=== PATIENT | female | born 1950 | race Caucasian/White ===

== ENCOUNTER 2023-12-12 12:17 | Inpatient (IN) | payer MEDICARE, BC ==
[~2023-12-12] VITALS: Ht 162.6 cm; Wt 75.0 kg
[2023-12-12 13:06] LABS: BASOPHILS # (AUTO) 0.1 X10'3 (0-0.2); EOSINOPHILS # (AUTO) 0.4 X10'3 (0-0.9); EOSINOPHILS % (AUTO) 2.7 % (0-6); HEMATOCRIT 33.6 % (35.0-45.0); HEMOGLOBIN 10.9 g/dl (12.0-16.0); LYMPHOCYTES # (AUTO) 2.9 X10'3 (1.1-4.8); LYMPHOCYTES % (AUTO) 20.4 % (21-51); MEAN CORPUSCULAR HEMOGLOBIN 30.7 PG (27.0-31.0); MEAN CORPUSCULAR HGB CONC 32.4 g/dL (33.0-36.5); MEAN CORPUSCULAR VOLUME 94.8 FL (78-98); MEAN PLATELET VOLUME 7.2 FL (7.4-10.4); MONOCYTES # (AUTO) 0.8 X10'3 (0-0.9); MONOCYTES % (AUTO) 5.6 % (2-12); NEUTROPHILS # (AUTO) 10.1 X10'3 (1.8-7.7); NEUTROPHILS % (AUTO) 70.3 % (42-75); PLATELET COUNT 316 X10'3 (140-440); RED BLOOD COUNT 3.55 X10'6 (4.20-5.60); RED CELL DISTRIBUTION WIDTH 16.9 % (11.5-14.5); WHITE BLOOD COUNT 14.3 X10'3 (4.5-11.0)
[2023-12-12 13:10] LABS: ALBUMIN 3.3 G/DL (3.4-5.0); ANION GAP 10 (8-16); BLOOD UREA NITROGEN 47 MG/DL (7-18); CALCIUM 10.2 MG/DL (8.5-10.1); CHLORIDE 96 MMOL/L (99-107); CREATININE 7.77 MG/DL (0.40-0.90); GLUCOSE 168 MG/DL (70-104); MAGNESIUM 1.7 MG/DL (1.5-2.4); POTASSIUM 4.8 MMOL/L (3.5-5.1); SODIUM 136 MMOL/L (135-145); TOTAL CARBON DIOXIDE 29.8 MMOL/L (24-32); eCRCL 6 ML/MIN; eGFR 5 ML/MIN
[2023-12-12] MEDS: normal saline 1000ML IV soln IVB ONE (14:02)
[2023-12-12 14:05] LABS: C-REACTIVE PROTEIN 2.67 MG/DL (0.0-0.5)
[2023-12-12] MEDS: normal saline 1000ml 1,000 ML IV ONE (16:37)
[2023-12-12] MEDS ORDERED: potassium Cl 40MEQ/1/2NS 520ml 520 ML IV PRN (16:40)
[2023-12-12] MEDS ORDERED: magnesium sulf-water 4G/100mL 100 ML IV PRN (16:40)
[2023-12-12] MEDS ORDERED: acetaminophen 325mg tablet PO PRN (16:40)
[2023-12-12] MEDS ORDERED: magnesium Cl slow-release 64mg tablet PO PRN (16:40)
[2023-12-12] MEDS ORDERED: potassium Cl 20 mEq SR tablet PO PRN ×2 (16:40)
[2023-12-12] MEDS ORDERED: magnesium sulf-water 2g/50mL 50 ML IV PRN (16:40)
[2023-12-12] MEDS ORDERED: gentamicin inj 150 MG in normal saline 100ml IV soln 100 ML IV SCH (16:55)
[2023-12-12] MEDS ORDERED: VANCOMYCIN 1 GM IV ONE (17:05)
[2023-12-12] MEDS ORDERED: [UNRECOGNIZED DRUG - OTHER] IV ONE (17:05)
[2023-12-12] MEDS ORDERED: PEG IV ONE (17:05)
[2023-12-12] MEDS: normal saline 1000ml 1,000 ML IV SCH (17:16)
[2023-12-12] MEDS: vancomycin/NS 1 GM ADD-VANTAGE 250 ML X 1 DOSE IV ONE (17:16)
[2023-12-12] MEDS: oxyCODONE IR 5mg (immed. release) tablet PO PRN (19:13)
[2023-12-12] MEDS: gentamicin inj 150 MG in normal saline 100ml IV soln 100 ML IV ONE (19:29)
[2023-12-12] MEDS: diatrozoate meglu/diatrozoate sod (37% iodine) 120ML oral solution PO ONE (19:45)
[2023-12-12] MEDS: heparin, porcine 5000 units/ml vial SQ SCH (20:29)
[2023-12-12 22:00] VITALS: BP 92/45; PULSE 81; RESP 18; TEMP 97.7; O2SAT 95
[2023-12-13] VITALS (13 sets, daily range): BP systolic 90–115; BP diastolic 37–60; PULSE 68–96; RESP 15–21; TEMP 97.2–98.4; O2SAT 95–100
[2023-12-13] MEDS ORDERED: piperacillin/tazo 3.375gm/50ml 50 ML IV SCH
[2023-12-13] MEDS: acetaminophen 325mg tablet PO SCH
[2023-12-13] MEDS: diatr meglu/diatrizoate 30ml oral sol.-(3 dose) bottle PO SCH (00:13)
[2023-12-13] MEDS: normal saline 500ml IV soln 500 ML IV ONE (02:10)
[2023-12-13] MEDS: VANCOMYCIN LEVEL IV SCH (03:00)
[2023-12-13 07:39] LABS: BASOPHILS # (AUTO) 0.1 X10'3 (0-0.2); EOSINOPHILS # (AUTO) 0.5 X10'3 (0-0.9); EOSINOPHILS % (AUTO) 3.6 % (0-6); HEMATOCRIT 36.4 % (35.0-45.0); LYMPHOCYTES # (AUTO) 2.4 X10'3 (1.1-4.8); LYMPHOCYTES % (AUTO) 19.1 % (21-51); MEAN CORPUSCULAR HEMOGLOBIN 31.9 PG (27.0-31.0); MEAN CORPUSCULAR HGB CONC 32.9 g/dL (33.0-36.5); MEAN PLATELET VOLUME 6.9 FL (7.4-10.4); MONOCYTES # (AUTO) 0.7 X10'3 (0-0.9); MONOCYTES % (AUTO) 5.8 % (2-12); NEUTROPHILS % (AUTO) 70.5 % (42-75); PLATELET COUNT 274 X10'3 (140-440); RED BLOOD COUNT 3.75 X10'6 (4.20-5.60); RED CELL DISTRIBUTION WIDTH 17.3 % (11.5-14.5); WHITE BLOOD COUNT 12.8 X10'3 (4.5-11.0)
[2023-12-13] MEDS ORDERED: vancomycin/NS 1 GM ADD-VANTAGE 250 ML X 1 DOSE IV PRN (08:00)
[2023-12-13] MEDS ORDERED: normal saline 1000ml 100 ML IV PRN (08:00)
[2023-12-13] MEDS ORDERED: NORMAL SALINE IV SCH (12:25)
[2023-12-13] MEDS ORDERED: CEFTAZIDIME IV SCH (12:25)
[2023-12-13] MEDS ORDERED: AVIBACTAM IV SCH (12:25)
[2023-12-13] MEDS ORDERED: CALC0.2535 PO (13:03)
[2023-12-13] MEDS ORDERED: CHOL4PAC17 (13:03)
[2023-12-13] MEDS ORDERED: MIDO5TAB4 PO (13:03)
[2023-12-13] MEDS ORDERED: CARB1TAB36 PO (13:03)
[2023-12-13] MEDS ORDERED: ROSU20TA73 PO (13:03)
[2023-12-13] MEDS ORDERED: METO25TA6 PO (13:03)
[2023-12-13] MEDS ORDERED: VENL112. PO (13:03)
[2023-12-13] MEDS ORDERED: GABA300T28 (13:03)
[2023-12-13] MEDS ORDERED: ISOS20TA15 PO (13:03)
[2023-12-13] MEDS ORDERED: SEVE800T8 PO (13:25)
[2023-12-13] MEDS ORDERED: PANT40TA54 PO (13:26)
[2023-12-13] MEDS ORDERED: NEPHC PO (13:27)
[2023-12-13] MEDS ORDERED: LACT1CAP65 PO (13:30)
[2023-12-13] MEDS: metroNIDAZOLE-Flagyl 500mg/NS 100 ML IV SCH (17:41)
[2023-12-13] MEDS: linezolid 600mg/300ml PREMIX 300 ML IV SCH (17:44)
[2023-12-13 17:58] LABS: ALANINE AMINOTRANSFERASE 10 U/L (12-78); ALBUMIN/GLOBULIN RATIO 0.7 (1.1-1.5); ALKALINE PHOSPHATASE 123 IU/L (46-116); ANION GAP 11 (8-16); ASPARTATE AMINO TRANSFERASE 19 U/L (10-37); BILIRUBIN,TOTAL 0.6 MG/DL (0.1-1.0); BLOOD UREA NITROGEN 33 MG/DL (7-18); BUN/CREATININE RATIO 5.6 (10.0-20.0); CALCIUM 9.8 MG/DL (8.5-10.1); CHLORIDE 102 MMOL/L (99-107); CREATININE 5.93 MG/DL (0.40-0.90); GLUCOSE 127 MG/DL (70-104); POTASSIUM 4.5 MMOL/L (3.5-5.1); SODIUM 136 MMOL/L (135-145); TOTAL CARBON DIOXIDE 23.4 MMOL/L (24-32); TOTAL PROTEIN 7.4 G/DL (6.4-8.2); eCRCL 7 ML/MIN; eGFR 7 ML/MIN
[2023-12-13] MEDS: sevelamer carbonate 800mg tablet PO SCH (18:06)
[2023-12-13] MEDS ORDERED: metoprolol tartrate 12.5mg (1/2 tablet) PO SCH (20:00)
[2023-12-13] MEDS: lactobacillus rhamnosus 10,000 MMU CELLS/CAPSULE PO SCH (20:50)
[2023-12-13] MEDS: atorvastatin 20mg tablet PO SCH (20:52)
[2023-12-14] VITALS (7 sets, daily range): BP systolic 92–136; BP diastolic 43–82; PULSE 77–85; RESP 16–20; TEMP 97.2–98.6; O2SAT 95–98
[2023-12-14] MEDS: heparin 1,000 units/ml 10ml inj IV ONE (06:35)
[2023-12-14 07:51] LABS: BASOPHILS # (AUTO) 0.1 X10'3 (0-0.2); BASOPHILS % (AUTO) 1.1 % (0-1); EOSINOPHILS # (AUTO) 0.2 X10'3 (0-0.9); EOSINOPHILS % (AUTO) 2.3 % (0-6); HEMATOCRIT 33.6 % (35.0-45.0); HEMOGLOBIN 10.8 g/dl (12.0-16.0); LYMPHOCYTES # (AUTO) 1.6 X10'3 (1.1-4.8); LYMPHOCYTES % (AUTO) 18.9 % (21-51); MEAN CORPUSCULAR HGB CONC 32.3 g/dL (33.0-36.5); MONOCYTES # (AUTO) 0.7 X10'3 (0-0.9); MONOCYTES % (AUTO) 8.3 % (2-12); NEUTROPHILS # (AUTO) 5.8 X10'3 (1.8-7.7); NEUTROPHILS % (AUTO) 69.4 % (42-75); PLATELET COUNT 239 X10'3 (140-440); RED CELL DISTRIBUTION WIDTH 17.3 % (11.5-14.5); WHITE BLOOD COUNT 8.3 X10'3 (4.5-11.0)
[2023-12-14] MEDS: midodrine 5mg tablet PO SCH (08:00)
[2023-12-14 08:08] LABS: ALBUMIN 2.9 G/DL (3.4-5.0); ALBUMIN/GLOBULIN RATIO 0.6 (1.1-1.5); ALKALINE PHOSPHATASE 133 IU/L (46-116); ANION GAP 11 (8-16); ASPARTATE AMINO TRANSFERASE 18 U/L (10-37); BILIRUBIN,TOTAL 0.5 MG/DL (0.1-1.0); BLOOD UREA NITROGEN 31 MG/DL (7-18); BUN/CREATININE RATIO 4.7 (10.0-20.0); CHLORIDE 99 MMOL/L (99-107); CREATININE 6.56 MG/DL (0.40-0.90); GLUCOSE 127 MG/DL (70-104); POTASSIUM 4.6 MMOL/L (3.5-5.1); SODIUM 134 MMOL/L (135-145); TOTAL CARBON DIOXIDE 24.2 MMOL/L (24-32); TOTAL PROTEIN 7.5 G/DL (6.4-8.2); eCRCL 7 ML/MIN; eGFR 6 ML/MIN
[2023-12-14] MEDS: vitamin B comp w/Vit. C tab 1 TAB TABLET PO SCH (08:16)
[2023-12-14] MEDS: calcitriol 0.25mcg capsule PO SCH (08:17)
[2023-12-14] MEDS: pantoprazole 40mg Tablet.DR PO SCH (08:17)
[2023-12-14 08:27] LABS: ALANINE AMINOTRANSFERASE < 6 U/L (12-78)
[2023-12-14] MEDS ORDERED: LORazepam 0.5 MG tablet PO PRN (11:15)
[2023-12-14] MEDS: LORazepam 1 MG tablet PO ONE (11:33)
[2023-12-14] MEDS: JUVEN Shake w/Arg/Glut/Ca2+Bmb (Juven 19.3gm) pkt 240ml PO SCH (12:30)
[2023-12-14] MEDS: carbidoba-levodopa 25-100mg tablet PO SCH (13:18)
[2023-12-14] MEDS: venlafaxine XR 37.5mg cap (Q24H) PO SCH (13:18)
[2023-12-14] MEDS: gabapentin 300mg capsule PO SCH (20:46)
[2023-12-14] MEDS: chloestyramine/aspartame 4gm packet PO SCH (20:59)
[2023-12-15] VITALS (13 sets, daily range): BP systolic 96–125; BP diastolic 45–65; PULSE 68–80; RESP 14–19; TEMP 97.1–98.5; O2SAT 97–100
[2023-12-15 06:45] LABS: BASOPHILS # (AUTO) 0.1 X10'3 (0-0.2); BASOPHILS % (AUTO) 0.9 % (0-1); EOSINOPHILS # (AUTO) 0.4 X10'3 (0-0.9); HEMATOCRIT 29.7 % (35.0-45.0); HEMOGLOBIN 9.9 g/dl (12.0-16.0); LYMPHOCYTES # (AUTO) 1.6 X10'3 (1.1-4.8); LYMPHOCYTES % (AUTO) 18.2 % (21-51); MEAN CORPUSCULAR HEMOGLOBIN 31.6 PG (27.0-31.0); MEAN CORPUSCULAR HGB CONC 33.2 g/dL (33.0-36.5); MEAN CORPUSCULAR VOLUME 95.2 FL (78-98); MEAN PLATELET VOLUME 6.7 FL (7.4-10.4); MONOCYTES # (AUTO) 0.6 X10'3 (0-0.9); MONOCYTES % (AUTO) 6.7 % (2-12); NEUTROPHILS # (AUTO) 6.3 X10'3 (1.8-7.7); NEUTROPHILS % (AUTO) 70.2 % (42-75); PLATELET COUNT 235 X10'3 (140-440); RED BLOOD COUNT 3.12 X10'6 (4.20-5.60); RED CELL DISTRIBUTION WIDTH 16.9 % (11.5-14.5)
[2023-12-15 06:56] LABS: ALANINE AMINOTRANSFERASE < 6 U/L (12-78); ALBUMIN 2.7 G/DL (3.4-5.0); ALBUMIN/GLOBULIN RATIO 0.6 (1.1-1.5); ALKALINE PHOSPHATASE 116 IU/L (46-116); ANION GAP 11 (8-16); ASPARTATE AMINO TRANSFERASE 7 U/L (10-37); BILIRUBIN,TOTAL 0.6 MG/DL (0.1-1.0); BLOOD UREA NITROGEN 44 MG/DL (7-18); BUN/CREATININE RATIO 5.4 (10.0-20.0); CALCIUM 10.1 MG/DL (8.5-10.1); CHLORIDE 98 MMOL/L (99-107); CREATININE 8.09 MG/DL (0.40-0.90); GLUCOSE 152 MG/DL (70-104); POTASSIUM 4.9 MMOL/L (3.5-5.1); SODIUM 132 MMOL/L (135-145); TOTAL CARBON DIOXIDE 23.4 MMOL/L (24-32); TOTAL PROTEIN 6.9 G/DL (6.4-8.2); eCRCL 5 ML/MIN; eGFR 5 ML/MIN
[2023-12-15] MEDS: Isosorbide Mononitrate 20 MG TAB PO SCH (08:00)
[2023-12-15] MEDS: heparin 1,000 units/ml 10ml inj HE ONE ×2 (13:26→13:27)
[2023-12-15] MEDS: heparin 1,000unit/ml 10ml vial 10 ML IV ONE (14:04)
[2023-12-15] MEDS: heparin 1,000 units/ml 10ml inj IV ONE (14:05)
[2023-12-15] MEDS: EPOETIN ALFA-EPBX 20,000 UNIT/ML 1 ML MDV IV ONE (14:06)
[2023-12-15] MEDS: metroNIDAZOLE 500mg tablet PO SCH (15:35)
[2023-12-15] MEDS: PERFLUTREN PROTEIN-A MICROSPHR (Optison) 0.22 MG/ML 3ML VIAL IV ONE (15:40)
[2023-12-15] MEDS: gabapentin 100mg capsule PO SCH (21:42)
[2023-12-15] MEDS: linezolid 600mg tablet PO SCH (21:43)
[2023-12-15] MEDS: NORMAL SALINE IV SCH (22:24)
[2023-12-15] MEDS: CEFTAZIDIME IV SCH (22:24)
[2023-12-15] MEDS: AVIBACTAM IV SCH (22:24)
[2023-12-16] VITALS (8 sets, daily range): BP systolic 112–147; BP diastolic 44–89; PULSE 69–84; RESP 13–19; TEMP 97.3–98.4; O2SAT 96–99
[2023-12-16 07:30] LABS: BASOPHILS # (AUTO) 0.1 X10'3 (0-0.2); EOSINOPHILS # (AUTO) 0.5 X10'3 (0-0.9); EOSINOPHILS % (AUTO) 5.5 % (0-6); HEMATOCRIT 28.4 % (35.0-45.0); HEMOGLOBIN 9.3 g/dl (12.0-16.0); LYMPHOCYTES # (AUTO) 1.7 X10'3 (1.1-4.8); LYMPHOCYTES % (AUTO) 19.4 % (21-51); MEAN CORPUSCULAR HEMOGLOBIN 31.4 PG (27.0-31.0); MEAN CORPUSCULAR HGB CONC 32.9 g/dL (33.0-36.5); MEAN CORPUSCULAR VOLUME 95.5 FL (78-98); MEAN PLATELET VOLUME 6.7 FL (7.4-10.4); MONOCYTES # (AUTO) 0.5 X10'3 (0-0.9); MONOCYTES % (AUTO) 6.1 % (2-12); PLATELET COUNT 206 X10'3 (140-440); RED BLOOD COUNT 2.98 X10'6 (4.20-5.60); RED CELL DISTRIBUTION WIDTH 17.4 % (11.5-14.5); WHITE BLOOD COUNT 8.8 X10'3 (4.5-11.0)
[2023-12-16 07:38] LABS: ALBUMIN 2.3 G/DL (3.4-5.0); ALBUMIN/GLOBULIN RATIO 0.6 (1.1-1.5); ALKALINE PHOSPHATASE 107 IU/L (46-116); ANION GAP 7 (8-16); ASPARTATE AMINO TRANSFERASE 16 U/L (10-37); BILIRUBIN,TOTAL 0.4 MG/DL (0.1-1.0); BLOOD UREA NITROGEN 30 MG/DL (7-18); BUN/CREATININE RATIO 5.6 (10.0-20.0); CALCIUM 9.5 MG/DL (8.5-10.1); CHLORIDE 102 MMOL/L (99-107); CREATININE 5.36 MG/DL (0.40-0.90); FREE T4 (FREE THYROXINE) 0.87 NG/DL (0.73-1.40); GLUCOSE 133 MG/DL (70-104); POTASSIUM 4.3 MMOL/L (3.5-5.1); SODIUM 135 MMOL/L (135-145); THYROID STIMULATING HORMONE 1.06 ulU/ml (0.34-4.50); TOTAL CARBON DIOXIDE 25.7 MMOL/L (24-32); TOTAL PROTEIN 6.4 G/DL (6.4-8.2); eCRCL 8 ML/MIN; eGFR 8 ML/MIN
[2023-12-16 07:41] LABS: ALANINE AMINOTRANSFERASE < 6 U/L (12-78)
[2023-12-16] MEDS: ondansetron/PF 4mg/2ml inj IV PRN (19:47)
[2023-12-16] MEDS: CEFTAZIDIME IV SCH (20:04)
[2023-12-16] MEDS: NORMAL SALINE IV SCH (20:04)
[2023-12-16] MEDS: AVIBACTAM IV SCH (20:04)
[2023-12-17 02:00] VITALS: BP 124/89; PULSE 88; RESP 20; TEMP 97.6; O2SAT 97
[2023-12-17 06:00] VITALS: BP 131/40; PULSE 74; RESP 18; TEMP 98.8; O2SAT 98
[2023-12-17 06:19] LABS: BASOPHILS # (AUTO) 0.1 X10'3 (0-0.2); BASOPHILS % (AUTO) 0.9 % (0-1); EOSINOPHILS # (AUTO) 0.7 X10'3 (0-0.9); EOSINOPHILS % (AUTO) 6.6 % (0-6); HEMATOCRIT 30.1 % (35.0-45.0); HEMOGLOBIN 9.9 g/dl (12.0-16.0); LYMPHOCYTES # (AUTO) 1.7 X10'3 (1.1-4.8); LYMPHOCYTES % (AUTO) 15.7 % (21-51); MEAN CORPUSCULAR HEMOGLOBIN 31.4 PG (27.0-31.0); MEAN CORPUSCULAR HGB CONC 32.8 g/dL (33.0-36.5); MEAN CORPUSCULAR VOLUME 95.5 FL (78-98); MEAN PLATELET VOLUME 6.5 FL (7.4-10.4); MONOCYTES # (AUTO) 0.5 X10'3 (0-0.9); NEUTROPHILS # (AUTO) 7.7 X10'3 (1.8-7.7); NEUTROPHILS % (AUTO) 71.8 % (42-75); PLATELET COUNT 229 X10'3 (140-440); RED BLOOD COUNT 3.15 X10'6 (4.20-5.60); RED CELL DISTRIBUTION WIDTH 16.9 % (11.5-14.5); WHITE BLOOD COUNT 10.7 X10'3 (4.5-11.0)
[2023-12-17 06:59] LABS: ALBUMIN 2.6 G/DL (3.4-5.0); ALBUMIN/GLOBULIN RATIO 0.6 (1.1-1.5); ALKALINE PHOSPHATASE 105 IU/L (46-116); ANION GAP 13 (8-16); ASPARTATE AMINO TRANSFERASE 6 U/L (10-37); BILIRUBIN,TOTAL 0.5 MG/DL (0.1-1.0); BLOOD UREA NITROGEN 39 MG/DL (7-18); BUN/CREATININE RATIO 5.9 (10.0-20.0); CALCIUM 10.2 MG/DL (8.5-10.1); CHLORIDE 103 MMOL/L (99-107); CREATININE 6.58 MG/DL (0.40-0.90); GLUCOSE 111 MG/DL (70-104); POTASSIUM 5.2 MMOL/L (3.5-5.1); SODIUM 136 MMOL/L (135-145); TOTAL PROTEIN 6.9 G/DL (6.4-8.2); eCRCL 7 ML/MIN; eGFR 6 ML/MIN
[2023-12-17 07:43] LABS: ALANINE AMINOTRANSFERASE < 6 U/L (12-78)
[2023-12-17 08:00] VITALS: RESP 18; O2SAT 98
[2023-12-17] MEDS ORDERED: EPOETIN ALFA-EPBX 20,000 UNIT/ML 1 ML MDV IV ONE (10:05)
[2023-12-17] MEDS ORDERED: heparin 1,000 units/ml 10ml inj IV ONE (10:05)
[2023-12-17] MEDS ORDERED: heparin 1,000 units/ml 10ml inj HE ONE (10:10)
[2023-12-17 11:00] VITALS: BP 121/46; PULSE 84; RESP 16; O2SAT 95
== END 2023-12-17 12:22 | DRG 871 ==
LOC: ER 12:18 → ED HOLD 16:48 → PCU 3S 21:51
PROVIDERS: ADMIT Internal Medicine; ATTEND Internal Medicine
PROC: 5A1D70Z Performance of Urinary Filtration, Intermittent, Less than 6 Hours Per Day (ICD-10-PCS; 2023-12-13)
PROC: 5A1D70Z Performance of Urinary Filtration, Intermittent, Less than 6 Hours Per Day (ICD-10-PCS; principal; 2023-12-15)
DX: A41.9 Sepsis, unspecified organism (principal); K65.1 Peritoneal abscess; L89.154 Pressure ulcer of sacral region, stage 4; N18.6 End stage renal disease; I12.0 Hypertensive chronic kidney disease with stage 5 chronic kidney disease or end stage renal disease; M86.68 Other chronic osteomyelitis, other site; R57.9 Shock, unspecified; E11.22 Type 2 diabetes mellitus with diabetic chronic kidney disease; G20.A1 Parkinson's disease without dyskinesia, without mention of fluctuations; E11.69 Type 2 diabetes mellitus with other specified complication; D63.8 Anemia in other chronic diseases classified elsewhere; F32.9 Major depressive disorder, single episode, unspecified; T50.995A Adverse effect of other drugs, medicaments and biological substances, initial encounter; Y92.89 Other specified places as the place of occurrence of the external cause; Z88.1 Allergy status to other antibiotic agents; Z88.5 Allergy status to narcotic agent; Z88.2 Allergy status to sulfonamides; Z85.048 Personal history of other malignant neoplasm of rectum, rectosigmoid junction, and anus; Z92.3 Personal history of irradiation; Z93.3 Colostomy status; Z99.2 Dependence on renal dialysis
CPT/HCPCS: 36415; 71045; 74176; 80048; 80053; 82948; 83036; 83605; 83735; 84145; 84439; 84443; 85025; 85651; 86140; 87040; 87081; 87340; 93306; 96360; 97110; 97161; 97530; 99285; A4421; A4649; A6196; A6209; A6212; A6213; A6224; A6234; A6253; A6258; A6260; A6402; A6449; C1758; E1594; G0257; G0378; J1580; J1644; J2020; J2405; J3370; J3490; J7030; J7040; Q4081; Q9963